=== PATIENT | female | born 1965 | race Caucasian/White ===

== ENCOUNTER 2018-02-11 10:32 | Emergency (ER) | payer OTHER ==
[2018-02-11] MEDS ORDERED: HYDROcodone/ACETAMIN 5-325 MG* 1 TAB PO ONE (10:40)
[2018-02-11] MEDS ORDERED: Ondansetron ODT TAB* 4 MG PO ONE (10:40)
--- NOTE | 2018-02-11 10:50 | ED ---
Head Injury - HPI Summary HPI Summary: This patient is a 52 year old F presenting to [facility] with a chief complaint of a head injury secondary to a fall since 09:00 this morning. She was at work when she fell, hit the back of her head, and had LOC. She needed help getting up but was able to ambulate afterwards. The patient rates the pain 10/10 in severity. Patient reports headache, leg pain, right hip pain, and nausea. Patient denies left hip pain and CP. She denies being on blood thinners. Patient reports being allergic to morphine, but she has taken fentanyl before. - History Of Current Complaint Chief Complaint: EDHeadInjury Stated Complaint: HEAD AND NECK PAIN Time Seen by Provider: 02/11/18 10:35 Mechanism Of Injury: Fall From A Standing Position Onset/Duration: Started Hours Ago - 09:00 today, Traumatic Onset of Pain: Post Accident Severity Currently: Severe Pain Intensity: 10 Pain Scale Used: 0-10 Numeric Associated Signs And Symptoms: LOC Duration Unknown, Nausea, Headache, Other: - Right hip pain and leg pain. Denies left hip pain, CP, and back pain. - Allergies/Home Medications Allergies/Adverse Reactions: Allergies Allergy/AdvReac Type Severity Reaction Status Date / Time morphine Allergy Hives Verified 02/11/18 11:14 PMH/Surg Hx/FS Hx/Imm Hx Endocrine/Hematology History: Reports: Hx Diabetes Cardiovascular History: Denies: Hx Hypertension GI History: Reports: Hx Crohn's Disease - Surgical History Surgery Procedure, Year, and Place: Cholecystectomy and thyroid surgery Infectious Disease History: No Infectious Disease History: Denies: Traveled Outside the [place] in Last 30 Days - Family History Known Family History: Positive: Diabetes Negative: Other - Denies Crohn's disease - Social History Alcohol Use: None Substance Use Type: Reports: None Hx Tobacco Use: No Review of Systems Negative: Chest Pain Positive: Nausea Positive: Other - Leg pain, right hip pain. Denies left hip pain and back pain. Positive: Headache, Syncope - LOC post-accident All Other Systems Reviewed And Are Negative: Yes Physical Exam - Summary Physical Exam Summary: VITAL SIGNS: Reviewed. GENERAL: Patient is an obese FEMALE who is wearing a hard collar and lying in the stretcher.Patient is not in any acute respiratory distress. HEAD AND FACE: No signs of trauma. No ecchymosis, hematomas or skull depressions. No sinus tenderness. EYES: PERRLA, EOMI x 2, No injected conjunctiva, no nystagmus. No photophobia. EARS: Hearing grossly intact. Ear canals and tympanic membranes are within normal limits. MOUTH: Oropharynx within normal limits. NECK: Supple, trachea is midline, no adenopathy, no JVD, no carotid bruit, positive c-spine tenderness, wearing a hard collar. No meningeal signs, no Kernig's or brudzinskis signs. CHEST: Symmetric, no tenderness at palpation LUNGS: Clear to auscultation bilaterally. No wheezing or crackles. CVS: Regular rate and rhythm, S1 and S2 present, no murmurs or gallops appreciated. ABDOMEN: Soft, non-tender. No signs of distention. No rebound no guarding, and no masses palpated. Bowel sounds are normal. EXTREMITIES: FROM in all major joints, no edema, no cyanosis or clubbing. NEURO: Alert and oriented x 3. No acute neurological deficits. Speech is normal and follows commands. SKIN: Dry and warm GCS: 15 Triage Information Reviewed: Yes Vital Signs On Initial Exam: Initial Vitals Temp Pulse Resp BP Pulse Ox 97.3 F 93 19 152/85 98 02/11/18 10:35 02/11/18 10:35 02/11/18 10:35 02/11/18 10:35 02/11/18 10:35 Vital Signs Reviewed: Yes Diagnostics - Vital Signs Vital Signs Temp Pulse Resp BP Pulse Ox 02/11/18 10:35 97.3 F 93 19 152/85 98 - Laboratory Lab Statement: Any lab studies that have been ordered have been reviewed, and results considered in the medical decision making process. - Radiology Hip/Pelvis X-Ray Radiology Interpretation Completed By: Radiologist Summary of Radiographic Findings: 11:58. NO ACUTE OSSEOUS INJURY. IF SYMPTOMS PERSIST, RECOMMEND REPEAT IMAGING. ED Physician has reviewed this imaging report. - CT Cervical Spine CT CT Interpretation Completed By: Radiologist Summary of CT Findings: 11:25. No fracture of the cervical spine is noted. ED Physician has reviewed this imaging report. Brain CT CT Interpretation Completed By: Radiologist Summary of CT Findings: 11:22. NO ACUTE INTRACRANIAL PATHOLOGY. RIGHT PARIETAL SCALP HEMATOMA. ED Physician has reviewed this imaging report. Head Injury Course/Dx Assessment/Plan: This patient is a 52 year old F presenting to [facility] with a chief complaint of a head injury secondary to a fall since 09:00 this morning. She was at work when she fell, hit the back of her head, and had LOC. She needed help getting up but was able to ambulate afterwards. The patient rates the pain 10/10 in severity. Patient reports headache, leg pain, right hip pain, and nausea. Patient denies left hip pain and CP. She denies being on blood thinners. Patient reports being allergic to morphine, but she has taken fentanyl before. Head CT pression: no active intracranial pathology. Right parietal scalp hematoma. C-spine CT impression: No fracture of the cervical spine noted. X-ray of the right hip and pelvis impression: No acute osseous injury. In the ED course the patient was given Zofran and Phelan for the pain. At this point the patient is feeling better. I discussed all the findings and test results with the patient. Patient was instructed to return to the emergency room immediately if any of the symptoms return or worsens. Plan of care was discussed with the patient and understands and agrees. All questions were answered at patient satisfaction. There were no further complaints or concerns. Lung exam before discharge: CTA B/L. Good air exchange. No wheezing or crackles heard. CVS: S1 and S2 present. No murmurs appreciated. Patient is alert and oriented x 3. Patient is hemodynamically stable. Patient will be discharged home with follow up PCP in the next 2-3 days - Diagnoses Provider Diagnoses: Head contusion, Accidental fall Discharge - Sign-Out/Discharge Documenting (check all that apply): Patient Departure - Discharge Plan Condition: Stable Disposition: HOME Patient Education Materials: Fall Prevention for Older Adults (ED), Scalp Contusion in Adults (ED) Forms: *Work Release Referrals: [facility] [Outside] - 3 Days Additional Instructions: RETURN THE ED FOR ANY WORSENING OR NEW SYMPTOMS. FOLLOW UP WITH YOUR PRIMARY CARE PROVIDER OR THE [facility] WITHIN 3 DAYS. - Billing Disposition and Condition Condition: STABLE Disposition: Home - Attestation Statements Document Initiated by Scribe: Yes Documenting Scribe: Davis Díaz Provider For Whom Scribe is Documenting (Include Credential): Tony Valdez MD Scribe Attestation: Davis Garcia, scribed for Tony Valdez MD on 02/11/18 at 2117. Scribe Documentation Reviewed: Yes Provider Attestation: The documentation as recorded by the scribe, Davis Díaz accurately reflects the service I personally performed and the decisions made by me, Tony Valdez MD Status of Scribe Document: Viewed
[2018-02-11 12:13] VITALS: BP 127/88
== END 2018-02-11 12:12 | disposition home or self-care (01) ==
LOC: ED 10:32
DX: S06.9X1A Unspecified intracranial injury with loss of consciousness of 30 minutes or less, initial encounter (principal); S00.93XA Contusion of unspecified part of head, initial encounter; M79.604 Pain in right leg; R51 Headache; R55 Syncope and collapse; W19.XXXA Unspecified fall, initial encounter; Y92.9 Unspecified place or not applicable; Z88.6 Allergy status to analgesic agent
CPT/HCPCS: 70450; 72125; 99282; A9270-GY

== ENCOUNTER 2018-02-14 11:24 | Emergency (ER) | payer OTHER ==
[2018-02-14] MEDS ORDERED: Metoclopramide IV* 5 MG/ML 2 ML VIAL IV ONE (12:13)
[2018-02-14] MEDS ORDERED: fentaNYL* 50 MCG/ML 2 ML VIAL (100 MCG VIAL) IV SLOW PU ONE (12:13)
[2018-02-14] MEDS ORDERED: diPHENhydraMINE PO* 50 MG PO ONE (12:13)
[2018-02-14] MEDS ORDERED: Orphenadrine Citrate IV* 30 MG/ML 2 ML VIAL IV ONE (12:13)
[2018-02-14] MEDS ORDERED: NS 0.9% 1000 ML* 1,000 ML IV ONE (12:15)
--- NOTE | 2018-02-14 12:19 | ED ---
Headache - HPI Summary HPI Summary: This patient is a 52 year old F presenting to [facility] accompanied by a woman with a chief complaint of worsening PHAM since 4 days ago. The patient was here 3 days ago from a fall when she hit her head. She had a CT scan and everything looked normal. The patient rates the pain 9/10 in severity. The majority of the pain is in her neck and head. Patient reports neck pain, lower back pain, nausea, and agitation. Patient denies vomiting, urinary symptoms, or difficulties passing stool. She says that her headaches have gotten more severe and the pain is getting worse. She has only taken Tylenol to treat the symptoms. Her neck pain has improved since her last visit. The lower back pain is a new symptom. She is able to ambulate, sit, eat, and drink. SHX occasional EtOH. No SHx tobacco use. - History Of Current Complaint Chief Complaint: EDNeckComplaint Stated Complaint: FALL HEAD PAIN, BACK PAIN, NECK PAIN Time Seen by Provider: 02/14/18 11:56 Hx Obtained From: Patient Onset/Duration: Gradual Onset, Started days ago - 4 Initially Headache Was: Mild Currently Pain Is: Current Pain Scale(0-10)= - 9/10, Severe Timing: Constant Associated Signs And Symptoms: Nausea, Neck Pain, Neck Stiffness - Allergies/Home Medications Allergies/Adverse Reactions: Allergies Allergy/AdvReac Type Severity Reaction Status Date / Time morphine Allergy Hives Verified 02/11/18 11:14 PMH/Surg Hx/FS Hx/Imm Hx Endocrine/Hematology History: Reports: Hx Diabetes Cardiovascular History: Denies: Hx Hypertension GI History: Reports: Hx Crohn's Disease - Surgical History Surgery Procedure, Year, and Place: Cholecystectomy and thyroid surgery Infectious Disease History: No Infectious Disease History: Denies: Traveled Outside the [place] in Last 30 Days - Family History Known Family History: Positive: Diabetes Negative: Other - Denies Crohn's disease - Social History Alcohol Use: Occasionally Substance Use Type: Reports: None Hx Tobacco Use: No Smoking Status (MU): Never Smoked Tobacco Review of Systems Positive: Nausea. Negative: Vomiting Positive: no symptoms reported Musculoskeletal: Other - neck pain, lower back pain Positive: Headache Positive: Other - agitated All Other Systems Reviewed And Are Negative: Yes Physical Exam - Summary Physical Exam Summary: VITAL SIGNS: Reviewed. GENERAL: Patient is a well-developed and nourished female who is lying comfortable in the stretcher. Patient is not in any acute respiratory distress. HEAD AND FACE: No signs of trauma. No ecchymosis, hematomas or skull depressions. No sinus tenderness. The headache is located in the frontal area EYES: PERRLA, EOMI x 2, No injected conjunctiva, no nystagmus. EARS: Hearing grossly intact. Ear canals and tympanic membranes are within normal limits. MOUTH: Oropharynx within normal limits. NECK: Supple, trachea is midline, no adenopathy, no JVD, no carotid bruit, no c- spine tenderness, neck with full ROM. CHEST: Symmetric, no tenderness at palpation LUNGS: Clear to auscultation bilaterally. No wheezing or crackles. CVS: Regular rate and rhythm, S1 and S2 present, no murmurs or gallops appreciated. ABDOMEN: Soft, non-tender. No signs of distention. No rebound no guarding, and no masses palpated. Bowel sounds are normal. SPINE: lumbar spine tenderness in the paraspinal muscles, no c-spine tenderness EXTREMITIES: FROM in all major joints, no edema, no cyanosis or clubbing. NEURO: Alert and oriented x 3. No acute neurological deficits. Speech is normal and follows commands. SKIN: Dry and warm GIGU: Patient declined a rectal exam. Triage Information Reviewed: Yes Vital Signs On Initial Exam: Initial Vitals Temp Pulse Resp BP Pulse Ox 97.8 F 88 18 154/94 98 02/14/18 11:27 02/14/18 11:27 02/14/18 11:27 02/14/18 11:27 02/14/18 11:27 Vital Signs Reviewed: Yes Diagnostics - Vital Signs Vital Signs Temp Pulse Resp BP Pulse Ox 02/14/18 11:27 97.8 F 88 18 154/94 98 - Laboratory Lab Statement: Any lab studies that have been ordered have been reviewed, and results considered in the medical decision making process. - Radiology Lumbar Spine X-Ray Radiology Interpretation Completed By: Radiologist Summary of Radiographic Findings: 12:55. MILD DIFFUSE DEGENERATIVE DISC DISEASE. ED Physician has reviewed this imaging report. Re-Evaluation - Re-Evaluation 1 Re-Evaluation Time: 13:39 Change: Improved Comment: Patient is feeling much better. Headache Course/Dx - Course Assessment/Plan: This patient is a 52 year old F presenting to [facility] accompanied by a woman with a chief complaint of worsening PHAM since 4 days ago. The patient was here 3 days ago from a fall when she hit her head. She had a CT scan and everything looked normal. The patient rates the pain 9/10 in severity. The majority of the pain is in her neck and head. Patient reports neck pain, lower back pain, nausea, and agitation. Patient denies vomiting, urinary symptoms, or difficulties passing stool. She says that her headaches have gotten more severe and the pain is getting worse. She has only taken Tylenol to treat the symptoms. Her neck pain has improved since her last visit. The lower back pain is a new symptom. She is able to ambulate, sit, eat, and drink. SHX occasional EtOH. No SHx tobacco use. X-ray of the lumbar spine impression: Mild diffuse degenerative disc disease. In the ED course the patient was given Benadryl, Reglan for the headache and she was given fentanyl and Norflex for the back pain. After the patient was given these medications the symptoms improved. The patient is ambulating on her own with a very steady walk and the pain has significantly improved. I discussed all the findings and test results with the patient. Patient was instructed to return to the emergency room immediately if any of the symptoms return or worsens. Plan of care was discussed with the patient and understands and agrees. All questions were answered at patient satisfaction. There were no further complaints or concerns. Lung exam before discharge: CTA B/L. Good air exchange. No wheezing or crackles heard. CVS: S1 and S2 present. No murmurs appreciated. Patient is alert and oriented x 3. Patient is hemodynamically stable. Patient will be discharged home with follow up PCP in the next 2-3 days - Diagnoses Provider Diagnoses: Headache, Back pain Discharge - Sign-Out/Discharge Documenting (check all that apply): Patient Departure - D/C - Discharge Plan Condition: Stable Disposition: HOME Prescriptions: Cyclobenzaprine TAB* [Flexeril 10 MG TAB*] 10 mg PO TID PRN #12 tab PRN Reason: Spasms Hydrocodone/Acetaminophen [Wilson 5-325 Tablet] 1 each PO Q6H PRN #10 tablet MDD 4 PRN Reason: Pain Patient Education Materials: Acute Headache (ED), Back Pain (ED) Forms: *Work Release Referrals: [facility] [Outside] - 3 Days Additional Instructions: RETURN TO ED FOR ANY WORSENING OR NEW SYMPTOMS. FOLLOW UP WITH YOUR PRIMARY CARE PHYSICIAN OR [facility] WITHIN 3 DAYS. - Billing Disposition and Condition Condition: STABLE Disposition: Home - Attestation Statements Document Initiated by Sonali: Yes Documenting Scribe: Twin Talavera Provider For Whom Lennyibe is Documenting (Include Credential): Tony Valdez MD Scribe Attestation: ITwin, scribed for Tony Valdez MD on 02/14/18 at 1818. Scribe Documentation Reviewed: Yes Provider Attestation: The documentation as recorded by the Twin underwood accurately reflects the service I personally performed and the decisions made by me, Tony Valdez MD Status of Scribe Document: Viewed
[2018-02-14 14:16] VITALS: BP 121/55
== END 2018-02-14 14:15 | disposition home or self-care (01) ==
LOC: ED 11:24
DX: R51 Headache (principal); M54.5 Low back pain; M51.36 Other intervertebral disc degeneration, lumbar region; E11.9 Type 2 diabetes mellitus without complications; K50.90 Crohn's disease, unspecified, without complications; Z88.5 Allergy status to narcotic agent
CPT/HCPCS: 72100; 96361; 96374; 96375; 99283; A9270-GY; J2360; J2765; J3010

== ENCOUNTER 2018-04-02 19:21 | Emergency (ER) | payer OTHER ==
--- NOTE | 2018-04-02 20:32 | ED ---
Upper Extremity Pain - HPI Summary HPI Summary: Pt is 53 y/o F brought in my ambulance from urgent care status post fall. 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 She denies hitting her head, but notes that she did urinate herself when she fell. Since the fall, her urination has been normal. Pt was not able to get up by herself, and a coworker had to help her up. Her left wrist and elbow felt sore and she tried to alleviate the pain by icing them. As the day progressed her arm pain worsened to where she now is unable to move it. Rates her pain an 8/10 in severity. Pt also notes lower back pain and the pain is exacerbated when she tries to sit down, but she has been able to walk around after the fall. She also states that her legs have a tingling sensation, but she had been feeling that a few days prior to the fall. Denies neck pain or right arm pain. - History of Current Complaint Chief Complaint: EDBackInjuryPain Stated Complaint: FALL Time Seen by Provider: 04/02/18 19:40 Hx Obtained From: Patient Mechanism Of Injury: Fall From A Standing Position Onset/Duration: Started Hours Ago, Still Present Timing: Constant Severity Currently: Severe Pain Location: Elbow, Wrist Aggravating Factor(s): Movement Alleviating Factor(s): Ice - Allergies/Home Medications Allergies/Adverse Reactions: Allergies Allergy/AdvReac Type Severity Reaction Status Date / Time morphine Allergy Hives Verified 02/11/18 11:14 PMH/Surg Hx/FS Hx/Imm Hx Endocrine/Hematology History: Reports: Hx Diabetes Cardiovascular History: Denies: Hx Hypertension GI History: Reports: Hx Crohn's Disease - Surgical History Surgery Procedure, Year, and Place: Cholecystectomy and thyroid surgery Infectious Disease History: No Infectious Disease History: Denies: Traveled Outside the [place] in Last 30 Days - Family History Known Family History: Positive: Diabetes Negative: Other - Denies Crohn's disease - Social History Alcohol Use: Occasionally Substance Use Type: Reports: None Hx Tobacco Use: No Smoking Status (MU): Never Smoked Tobacco Review of Systems Positive: other - urinated herself when she fell, but has had normal urination since Positive: Other - lower back pain, left arm pain, denies right arm pain or neck pain Positive: Paresthesia All Other Systems Reviewed And Are Negative: Yes Physical Exam - Summary Physical Exam Summary: Appearance: Obese, Well-appearing, Well-nourished, lying in bed comfortable Skin: Warm, dry, no obvious rash Eyes: sclera anicteric, no conjunctival pallor ENT: mucous membranes moist Neck: deferred Respiratory: No signs of respiratory distress Cardiovascular: Appears well perfused, pulses are nml Abdomen: deferred Musculoskeletal: Left upper extremity elbow unable to fully extend forearm with diffuse tenderness about elbow with no swelling or deformity. Left wrist minimal swelling, no deformity. Left hand is normal. Left shoulder has full range of motion with no tenderness. Neurological: Good sensory and motor function in both of legs. Awakeand alert, mentation is normal, speech is fluent and appropriate. Psychiatric: affect is normal, does not appear anxious or depressed Triage Information Reviewed: Yes Vital Signs On Initial Exam: Initial Vitals Temp Pulse Resp BP Pulse Ox 97.2 F 80 18 170/97 98 04/02/18 19:32 04/02/18 19:32 04/02/18 19:32 04/02/18 19:32 04/02/18 19:32 Vital Signs Reviewed: Yes Procedures - Splinting Left Upper Extremity Location: Left short arm splint Pre-Made Type: OCL Splint: short arm Diagnostics - Vital Signs Vital Signs Temp Pulse Resp BP Pulse Ox 04/02/18 19:32 97.2 F 80 18 170/97 98 - Laboratory Lab Statement: Any lab studies that have been ordered have been reviewed, and results considered in the medical decision making process. - Radiology Elbow X ray Radiology Interpretation Completed By: ED Physician - No fracture, pending offical report. Lumbar Spine X ray Radiology Interpretation Completed By: ED Physician - No fracture, pending offical report Wrist X ray Radiology Interpretation Completed By: ED Physician - Nondisplaced distal radial fracture, pending offical report. Course/Dx - Course Course Of Treatment: Pt is 53 y/o F brought in my ambulance from urgent care status post fall. 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 She denies hitting her head. Her left wrist and elbow felt sore and she tried to alleviate the pain by icing them. As the day progressed her arm pain worsened to where she now is unable to move it. Pt also notes lower back pain and the pain is exacerbated when she tries to sit down, but she has been able to walk around after the fall. Denies neck pain or right arm pain. Physical exam revealed left upper extremity elbow unable to fully extend forearm with diffuse tenderness about elbow with no swelling or deformity. And the left wrist showed minimal swelling, no deformity. Wrist x-ray showed nondisplaced distal radial fracture. Lumbar spine and elbow x-rays were negative for fracture. Pt was diagnosed with fractured distal radius left, left elbow sprain , and lumbar sprain and discharged home. Pt is agreeable with this plan. - Diagnoses Provider Diagnoses: Distal radius fracture, left, Sprain of left elbow, Lumbar sprain Discharge - Sign-Out/Discharge Documenting (check all that apply): Patient Departure - Discharge - Discharge Plan Condition: Good Disposition: HOME Prescriptions: oxyCODONE/Acetamin 5/325 MG* [Percocet 5/325 TAB*] 1 tab PO Q4H PRN #10 tab MDD 4 PRN Reason: Pain Patient Education Materials: Wrist Fracture in Adults (ED), Splint Care (ED) Referrals: Froilan Baer MD [Medical Doctor] - 2 Days - Billing Disposition and Condition Condition: GOOD Disposition: Home - Attestation Statements Document Initiated by Sonali: Yes Documenting Scribe: Katya Huerta Provider For Whom Sonali is Documenting (Include Credential): Dr. Enmanuel Lamar MD Scribe Attestation: Katya Garcia scribed for Dr. Enmanuel Lamar MD on 04/03/18 at 0241. Scribe Documentation Reviewed: Yes Provider Attestation: The documentation as recorded by the Katya underwood accurately reflects the service I personally performed and the decisions made by me, Dr. Enmanuel Lamar MD Status of Scribe Document: Viewed
[2018-04-02] MEDS ORDERED: oxyCODONE/Acetamin 5/325 MG* TAB PO ONE (23:11)
[2018-04-02 23:21] VITALS: BP 130/70
== END 2018-04-02 23:20 | disposition home or self-care (01) ==
LOC: ED 19:21
DX: S52.502A Unspecified fracture of the lower end of left radius, initial encounter for closed fracture (principal); S53.402A Unspecified sprain of left elbow, initial encounter; S33.5XXA Sprain of ligaments of lumbar spine, initial encounter; W01.0XXA Fall on same level from slipping, tripping and stumbling without subsequent striking against object, initial encounter; Y92.89 Other specified places as the place of occurrence of the external cause; Y99.0 Civilian activity done for income or pay; Z88.5 Allergy status to narcotic agent
CPT/HCPCS: 72110; 99283; A9270-GY